=== PATIENT | male | born 1945 | race American Indian/Alaskan Native ===

== ENCOUNTER 2019-01-13 09:13 | Emergency (ER) | payer MEDICARE, OTHER ==
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
[2019-01-13 09:35] VITALS: BP 167/84
--- NOTE | 2019-01-13 11:06 | Cat Scan Report ---
CT HEAD WITHOUT CONTRAST INDICATION / CLINICAL INFORMATION: Headache for 3 days. TECHNIQUE: Axial imaging performed from the skull apex through the skull base without the use of cont rast. Sagittal and coronal reformatted images. All CT scans at this location are performed using CT dose reduction for ALARA by means of automated exposure control. COMPARISON: None available. FINDINGS: CEREBRAL PARENCHYMA: No significant abnormality. No acute territorial infarct. HEMORRHAGE: None. EXTRA-AXIAL SPACES: Normal in size and morphology for the patient's age. VENTRICULAR SYSTEM: Normal in size and morphology for the patient's age. MIDLINE SHIFT OR HERNIATION: None. CEREBELLUM / BRAINSTEM: No significant abnormality. CALVARIUM: No significant abnormality. ORBITS: Normal as visualized. PARANASAL SINUSES / MASTOID AIR CELLS: There is trace fluid in the left maxillary sinus. The remainin g paranasal sinuses and mastoid air cells are clear. SOFT TISSUES of HEAD: No significant abnormality. ADDITIONAL FINDINGS: None. IMPRESSION: Unremarkable CT brain. Trace fluid in the left maxillary sinus. Correlate for acute sinusitis. Signer Name: Mehran Montesinos Jr, MD Signed: 01/13/2019 11:01 AM Workstation Name: [id number]
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
== END 2019-01-13 11:46 | disposition home or self-care (01) ==
LOC: ED 09:13
DX: S09.90XA Unspecified injury of head, initial encounter (principal); I10 Essential (primary) hypertension; V49.49XA Driver injured in collision with other motor vehicles in traffic accident, initial encounter; Y93.89 Activity, other specified; Y92.410 Unspecified street and highway as the place of occurrence of the external cause; Y99.8 Other external cause status
CPT/HCPCS: 70450